=== PATIENT | male | born 1965 | race Two or more races ===

== ENCOUNTER 2024-11-29 21:15 | Emergency (ER) | payer OTHER ==
[~2024-11-29] VITALS: Ht 180.3 cm; Wt 81.6 kg
[2024-11-29 22:01] VITALS: BP 141/91; TEMP 98.1; O2SAT 98
[2024-11-29] MEDS ORDERED: PRED50TA PO ×2 (22:22→23:21)
[2024-11-29] MEDS ORDERED: INDO50CA92 PO ×2 (22:22→23:21)
== END 2024-11-29 22:26 | disposition home or self-care (01) ==
LOC: ER 21:31
DX: M10.9 Gout, unspecified (principal); Z79.52 Long term (current) use of systemic steroids